=== PATIENT | male | born 1990 | race Caucasian/White ===

== ENCOUNTER 2023-08-16 07:49 | Outpatient (CLI) | payer OTHER, SELFPAY ==
--- NOTE | 2023-08-16 07:55 | CA_ITS ---
APPROVED REPORT EXAM: Comprehensive 2D, Doppler, and color-flow Echocardiogram Cream Beater: Lorri Walton RDCS Ht: 6 ft 0 in Wt: 235lbs BSA: 2.28 BP: 162/86 mmHg Indications: CP M-Mode Dimensions RVDd 1.91 cm (0.9-2.6) LA Diam 3.61 cm (1.9-4.0) LVDd 5.57 cm (3.5-5.7) LVDs 3.69 cm (3.5-5.7) IVSd 1.06 cm (0.6-1.1) PWd 1.00 cm (0.6-1.1) EF (Teich) 61.90% FS 33.80% EDV (Teich) 151.80 mL ESV (Teich) 57.80 mL LV Diastology E Decel Time 190 (160-240 msec) E/A Ratio 2.0 Mitral Valve MV E Max Justin. 102.0 (40-130 cm/s) MV A Velocity 50.0 (40-130 cm/s) E/A Ratio 2.03 MV PHT 56.0 ms Left Ventricle The left ventricle is normal size. The left ventricular systolic function is normal. The left ventricular ejection fraction is within the normal range. There is normal left ventricular wall thickness. There is normal LV segmental wall motion. LVEF is 55%. Right Ventricle Right ventricle is mildly dilated. The right ventricular systolic function is normal. Atria The left atrium size is normal. The right atrium size is normal. There is no Doppler evidence of interatrial shunt. Aortic Valve Aortic valve opens well. There is no aortic valvular stenosis. No aortic regurgitation is present. Mitral Valve The mitral valve is normal in structure. No evidence of mitral valve stenosis. Trace mitral regurgitation. Tricuspid Valve The tricuspid valve leaflets are thin and pliable. Trace tricuspid regurgitation. There is insufficient TR jet to estimate RVSP. Pulmonic Valve The pulmonary valve is normal in structure. Trace pulmonic regurgitation. Great Vessels The aortic root is normal in size. The ascending aorta is normal in size. IVC is normal in size and collapses >50% with inspiration. Pericardium There is no pericardial effusion. Other Information Study Quality: Fair Conclusion Normal biventricular systolic function. Mild RV dilation. No significant valvular stenosis or regurgitation. Electronically signed by : Yumiko Whittington MD 08/20/2023 10:42:06
== END 2023-08-16 23:59 ==
LOC: RT 07:51
PROVIDERS: PCP Nurse Practitioner Family; Visit Provider Nurse Practitioner Family
DX: R07.9 Chest pain, unspecified (principal); Z87.74 Personal history of (corrected) congenital malformations of heart and circulatory system
CPT/HCPCS: 93306